=== PATIENT | male | born 1995 | race American Indian/Alaskan Native ===

== ENCOUNTER 2017-04-12 11:11 | Emergency (ER) | payer BC ==
[~2017-04-12] VITALS: Ht 188 cm; Wt 120.2 kg
== END 2017-04-12 16:06 | disposition home or self-care (01) ==
LOC: ER 11:11
DX: B34.9 Viral infection, unspecified (principal); J02.9 Acute pharyngitis, unspecified

== ENCOUNTER 2017-07-30 12:04 | Emergency (ER) | payer BC ==
[~2017-07-30] VITALS: Ht 188 cm; Wt 103.0 kg
[2017-07-30] MEDS ORDERED: CIPRO500 MG PO (15:37)
[2017-07-30] MEDS ORDERED: FLAGYL500MG PO (15:37)
[2017-07-30] MEDS ORDERED: KETO10TA2 PO (15:37)
[2017-07-30] MEDS ORDERED: INTESTINEX680 M1 PO (15:37)
== END 2017-07-30 17:26 | disposition home or self-care (01) ==
LOC: ER 12:04
DX: L05.01 Pilonidal cyst with abscess (principal)